=== PATIENT | male | born 1955 | race Caucasian/White ===

== ENCOUNTER → 2018-12-23 | Outpatient (CLI) | payer OTHER ==
[2018-12-24 14:46] LABS: Stool Occult Bld Immuno 1 Positive (NEGATIVE); Stool Occult Bld Immuno 2 Positive (NEGATIVE)
== END | disposition home or self-care (01) ==
LOC: LAB 18:00 → LAB SHORT 18:00 → LAB FUT 12-21 09:35
PROVIDERS: Internal Medicine
DX: Z12.5 Encounter for screening for malignant neoplasm of prostate (principal); Z12.11 Encounter for screening for malignant neoplasm of colon; D64.9 Anemia, unspecified; E78.5 Hyperlipidemia, unspecified; I10 Essential (primary) hypertension; R73.9 Hyperglycemia, unspecified
CPT/HCPCS: G0328

== ENCOUNTER 2019-07-07 12:00 | Day surgery (SDC) | payer MEDICARE ==
[~2019-07-07] VITALS: Ht 185.4 cm; Wt 148.2 kg
[~2019-07-07 12:00] MED LIST: LOSA50 PO; Lexapro 10 mg T10 MG PO; Sudogest60 MG; ZOLP10
== END 2019-07-07 14:40 | disposition home or self-care (01) ==
LOC: ORSCSDS 12:00
PROVIDERS: Internal Medicine Gastroenterology
PROC: 0DBK8ZX Excision of Ascending Colon, Via Natural or Artificial Opening Endoscopic, Diagnostic (ICD-10-PCS; principal; 2019-07-07 13:15)
DX: R19.5 Other fecal abnormalities (principal); D12.2 Benign neoplasm of ascending colon; I10 Essential (primary) hypertension; G47.33 Obstructive sleep apnea (adult) (pediatric); K57.30 Diverticulosis of large intestine without perforation or abscess without bleeding; K64.8 Other hemorrhoids; E66.9 Obesity, unspecified; Z68.41 Body mass index [BMI] 40.0-44.9, adult; Z79.899 Other long term (current) drug therapy
CPT/HCPCS: 88305; J2250; J2704; J7120

== ENCOUNTER 2024-08-18 13:04 | Day surgery (SDC) | payer MEDICARE ==
[~2024-08-18] VITALS: Ht 185.4 cm; Wt 138.6 kg
[~2024-08-18 13:04] MED LIST changes: +HYDCHL25 PO; +LOSARTAN POTAS100 M1 PO; +Lactated Ringer's 1,000 ML IV ONE; +Lidocaine HCl/Pf 1% 5 ML VIAL ONE; +ROSUVASTATIN CAL5 MG PO; -ZOLP10; +ZOLP10 PO
[2024-08-18] MEDS ORDERED: Lactated Ringer's 1,000 ML IV ONE (14:10)
[2024-08-18] MEDS ORDERED: propofoL 50 ML IV ONE (14:30)
[2024-08-18 15:30] VITALS: BP 118/72
== END 2024-08-18 15:32 | disposition home or self-care (01) ==
LOC: ORSCSDS 13:04
PROVIDERS: Internal Medicine Gastroenterology
PROC: 0DBE8ZX Excision of Large Intestine, Via Natural or Artificial Opening Endoscopic, Diagnostic (ICD-10-PCS; principal; 2024-08-18 15:00)
DX: Z12.11 Encounter for screening for malignant neoplasm of colon (principal); Z86.0100 Personal history of colon polyps, unspecified; K52.9 Noninfective gastroenteritis and colitis, unspecified; K57.30 Diverticulosis of large intestine without perforation or abscess without bleeding; G47.33 Obstructive sleep apnea (adult) (pediatric); E66.01 Morbid (severe) obesity due to excess calories; Z68.41 Body mass index [BMI] 40.0-44.9, adult; J44.9 Chronic obstructive pulmonary disease, unspecified; I10 Essential (primary) hypertension; E78.5 Hyperlipidemia, unspecified; Z87.891 Personal history of nicotine dependence; Z79.899 Other long term (current) drug therapy
CPT/HCPCS: 88305; J2001; J2003; J2704; J7120

== ENCOUNTER 2024-11-11 08:48 | Day surgery (SDC) | payer MEDICARE ==
[~2024-11-11] VITALS: Ht 185.4 cm; Wt 141.1 kg
[~2024-11-11 08:48] MED LIST changes: -Lidocaine HCl/Pf 1% 5 ML VIAL ONE
[2024-11-11] MEDS ORDERED: CeFAZolin Sodium 2,000 MG VIAL ONE (08:50)
[2024-11-11] MEDS ORDERED: Triamcinolone Inj Susp 40 MG / ML 1ML Vial ONE (09:20)
[2024-11-11] MEDS ORDERED: Lidocaine 2% 5 ML SDV ONE (09:20)
[2024-11-11] MEDS ORDERED: Midazolam HCl 1MG / ML 2ML Vial ONE (09:26)
[2024-11-11] MEDS ORDERED: FentaNYL Citrate 50 MCG/ML 2 ML Injection ONE (09:26)
[2024-11-11] MEDS ORDERED: propofoL 20 ML IV ONE (09:26)
[2024-11-11] MEDS ORDERED: Bupivacaine HCl 0.25% 30 ML Injection ONE (09:28)
[2024-11-11] MEDS ORDERED: Lactated Ringer's 1,000 ML IV ONE (09:30)
--- NOTE | 2024-11-11 09:46 | NUR ---
11/11/24 0945 Skylar Farnsworth TIME OUT AT BEDSIDE FOR BLOCK AT 0937 BLOCK ENDED AT 0942. PT TOLERATED BLOCK WELL, PT MONITORED OXYGEN SAT, AND BLOOD PRESSURE, WNL. DR. MONTGOMERY PERFORMED THE BLOCK. NO COMPLICATIONS.
[2024-11-11] MEDS ORDERED: CeFAZolin Sodium 1000 mg Vial ONE (09:56)
[2024-11-11] MEDS ORDERED: Ondansetron HCl 2 MG / ML 2ML Vial ONE (09:58)
[2024-11-11] MEDS ORDERED: Dexamethasone Sod Phos 10 MG/ML 1ML VIAL ONE (09:58)
[2024-11-11] MEDS ORDERED: Phenylephrine HCl 100 MCG/ML-NS 10MLSYR (1MG/10ML) ONE (10:00)
--- NOTE | 2024-11-11 13:57 | NUR ---
11/11/24 1357 Baldo Diaz PT STATED B/P IN SDU IS WITHIN 20% OF BASELINE, AND CLOSER TO BASELINE THAN PRE-OP B/P. HE DENIED CARDIAC SYMPTOMS INCLUDING CP, WEAKNESS, SOB, HEADACHE, NAUSEA, AND VISUAL DISTURBANCE. NONE WAS OBSERVED. NO VSS AVAILABLE D/T MONITOR USED.
[2024-11-11 15:29] VITALS: BP 132/85
== END 2024-11-11 12:35 | disposition home or self-care (01) ==
LOC: ORSCSDS 08:48
PROVIDERS: Orthopaedic Surgery
PROC: 0RQS0ZZ Repair Right Carpometacarpal Joint, Open Approach (ICD-10-PCS; principal; 2024-11-11 10:15)
PROC: 3E0U33Z Introduction of Anti-inflammatory into Joints, Percutaneous Approach (ICD-10-PCS; principal; 2024-11-11 10:15)
DX: M18.0 Bilateral primary osteoarthritis of first carpometacarpal joints (principal); I10 Essential (primary) hypertension; E78.5 Hyperlipidemia, unspecified; E66.01 Morbid (severe) obesity due to excess calories; Z68.41 Body mass index [BMI] 40.0-44.9, adult; Z79.899 Other long term (current) drug therapy
CPT/HCPCS: C1713; J0690; J1100; J2250; J2371; J2405; J2704; J3010; J3301; J7120

== ENCOUNTER → 2025-02-11 | Outpatient (CLI) | payer MEDICARE ==
[~2025-02-11] MED LIST changes: -Lactated Ringer's 1,000 ML IV ONE
[2025-02-14 04:54] LABS: HSV 1 SUBTYPE BY PCR Not Detected; HSV 2 SUBTYPE BY PCR Not Detected; HSV SUBTYPE SOURCE LIPS
== END ==
LOC: LAB SHORT 10:02 → LAB 10:02
PROVIDERS: Emergency Medicine
DX: S00.522A Blister (nonthermal) of oral cavity, initial encounter (principal)
CPT/HCPCS: 87529